=== PATIENT | male | born 1990 | race African-American/Black ===

== ENCOUNTER 2016-10-15 12:43 | Emergency (ER) | payer SELFPAY ==
[~2016-10-15] VITALS: Ht 177.8 cm; Wt 72.6 kg
[~2016-10-15 12:43] MED LIST: CYCL10TA2 PO
[2016-10-15 13:14] VITALS: BP 115/54
[2016-10-15] MEDS ORDERED: LIDOCAINE 1% / SOD BICARB 8.4% 20 ML VIAL. IJ ONE (13:30)
[2016-10-15] MEDS ORDERED: DIPHTH,PERTUSS(ACELL),TET TOX 0.5 ML DISP.SYRIN. VAX IM ONE (13:30)
--- NOTE | 2016-10-15 13:48 | RAD ---
Indication pain. AP oblique and lateral views of the right hand were obtained. There is no bony abnormality. There is a foreign body embedded in the webspace between the ring and small fingers. IMPRESSION: No bony abnormality. Foreign body in the soft tissues as outlined above
--- NOTE | 2016-10-15 13:57 | PHYS DOC ---
Past Medical History Past Medical History: No Pertinent History Past Surgical History: No Surgical History Alcohol Use: None Drug Use: None Adult General Chief Complaint Chief Complaint: LACERATION/AVULSION HPI HPI Patient is a 26 year old male presents the emergency department today with a laceration to his right hand after "accidentally hitting a glass plated picture " approximately 2 and half hours prior to arrival. Patient denies glass striking him in the face. Patient denies any additional injuries or concerns at this time. Review of Systems Review of Systems Constitutional: Denies fever or chills [] Eyes: Denies change in visual acuity, redness, or eye pain [] HENT: Denies nasal congestion or sore throat [] Respiratory: Denies cough or shortness of breath [] Cardiovascular: No additional information not addressed in HPI [] GI: Denies abdominal pain, nausea, vomiting, bloody stools or diarrhea [] : Denies dysuria or hematuria [] Musculoskeletal: Denies back pain or joint pain [] Integument: Denies rash or skin lesions [] Neurologic: Denies headache, focal weakness or sensory changes [] Endocrine: Denies polyuria or polydipsia [] Current Medications Current Medications Current Medications Medications (Trade) Dose Ordered Sig/Shea Start Time Stop Time Status Last Admin Dose Admin Diphtheria/ Tetanus/Acell Pertussis (Boostrix) 0.5 ml ONCE ONCE 10/15/16 13:30 10/15/16 13:31 DC 10/15/16 13:37 0.5 ML Lidocaine/Sodium Bicarbonate (Buffered Lidocaine 1%) 20 ml 1X ONCE 10/15/16 13:30 10/15/16 13:31 DC 10/15/16 13:36 20 ML Allergies Allergies Allergies Coded Allergies Type Severity Reaction Last Updated Verified No Known Drug Allergies 07/06/16 No Physical Exam Physical Exam Constitutional: Well developed, well nourished, no acute distress, non-toxic appearance. [] HENT: Normocephalic, atraumatic, bilateral external ears normal, oropharynx moist, no oral exudates, nose normal. [] Eyes: PERRLA, EOMI, conjunctiva normal, no discharge. [] Neck: Normal range of motion, no tenderness, supple, no stridor. [] Cardiovascular:Heart rate regular rhythm, no murmur [] Lungs & Thorax: Bilateral breath sounds clear to auscultation [] Abdomen: Bowel sounds normal, soft, no tenderness, no masses, no pulsatile masses. [] Skin: Warm, dry, no erythema, no rash. [] Back: No tenderness, no CVA tenderness. [] Extremities: Right hand has 3 lacerations overlying the third and fourth MCPJ and also to the fourth webspace. There is no laceration crosses the extensor tendons of the hand. Patient displays full flexion and extension of all 5 fingers. His fingers are neurovascularly intact with capillary refill less than 2 seconds. Neurologic: Alert and oriented X 3, normal motor function, normal sensory function, no focal deficits noted. [] Psychologic: Affect normal, judgement normal, mood normal. [] Current Patient Data Vital Signs Vital Signs Date Time Temp Pulse Resp B/P Pulse Ox O2 Delivery O2 Flow Rate FiO2 10/15/16 13:14 98.0 69 16 97 Room Air 98.0 EKG EKG [] Radiology/Procedures Radiology/Procedures 3 views of right hand were performed with adequate technique. There is a linear foreign body seen between the fourth and fifth MCP J's. Procedure note: Lacerations were anesthetized with buffered 1% lidocaine. Wound was probed by myself. I was unable to locate the foreign body seen radiographically. I asked Dr. Frederic Sewell to review the x-rays. Dr. Franco did so and present himself to the patient. Upon additional probing of the laceration, Dr. Franco was able to locate the foreign body and remove it. He produced a sliver of glass with the same dimensions is seen by the foreign body on the x-rays. Laceration #1: 2.5 cm flap laceration adjacent to the third MCP J to the dorsum of the hand that extends through the dermis. There is no extensor tendon visualized. There is no retained foreign body. The wound was anesthetized with buffered 1% lidocaine and cleansed with Betadine solution and rinsed with copious amounts of saline. Wound was explored for foreign bodies. No foreign bodies are found. Wound margins were approximated utilizing 5-0 nylon in a simple interrupted fashion of a singular closure for total of 5 stitches. Laceration #2: 2 cm laceration in the fourth web space of the right hand which extends into the dermis. There is no retained foreign body. The wound was anesthetized with buffered 1% lidocaine and cleansed with Betadine solution and rinsed with copious amounts of saline. Wound was inspected for foreign bodies. No foreign body was found. Wound margins were approximated utilizing 5-0 nylon in a simple interrupted fashion of a singular closure for total of 4 stitches. Laceration #3: 1 cm laceration to the dorsum of the proximal phalanx of the fourth finger extended into the dermis. There is no retained foreign body. The wound was anesthetized with buffered 1% lidocaine and cleansed with Betadine solution and rinsed with copious amounts of saline. Wound was inspected for foreign bodies. No foreign bodies were found. Wound margins were approximated utilizing 5-0 nylon in a simple interrupted fashion for total of 3 stitches. Course & Med Decision Making Course & Med Decision Making Pertinent Labs and Imaging studies reviewed. (See chart for details) [] Dragon Disclaimer Dragon Disclaimer This electronic medical record was generated, in whole or in part, using a voice recognition dictation system. Departure Departure Impression: Primary Impression: Laceration Disposition: HOME, SELF-CARE Condition: IMPROVED Referrals: NO PCP (PCP) Patient Instructions: Foreign Body-Brief, Laceration Care, Adult, [id number] Additional Instructions: 1. The sliver of glass was removed from your right hand. 2. Stitches need to be removed in 10 days. 3. Review the discharge instructions for self-care at home and reasons to return to the emergency department. 4. A pamphlet is provided to you for assistance in finding a primary care doctor to address your medical concerns and follow-up with wound care. Scripts Cephalexin 500 Mg Capsule1 Cap PO TID #30 CAP Prov:MELISA MORAN 10/15/16 Hydrocodone/Apap 5-325 (Ulman 5-325 Tablet)1 Each Tablet1 Tab PO PRN Q6HRS PRN PAIN #10 TAB Prov:MELISA MORAN 10/15/16 MELISA MORAN Oct 15, 2016 13:57
[2016-10-15] MEDS ORDERED: CEPH500C PO (15:22)
[2016-10-15] MEDS ORDERED: HYDR-971 PO (15:22)
== END 2016-10-15 15:31 | disposition home or self-care (01) ==
LOC: ER 12:43
DX: S61.214A Laceration without foreign body of right ring finger without damage to nail, initial encounter (principal); S61.212A Laceration without foreign body of right middle finger without damage to nail, initial encounter; W22.09XA Striking against other stationary object, initial encounter; Y93.89 Activity, other specified; Y92.89 Other specified places as the place of occurrence of the external cause; Y99.8 Other external cause status
CPT/HCPCS: 12002; 12042; 73130; 90471; 90715; 99284-25

== ENCOUNTER 2016-10-27 14:34 | Emergency (ER) | payer SELFPAY ==
[~2016-10-27] VITALS: Ht 175.3 cm; Wt 72.6 kg
[~2016-10-27 14:34] MED LIST changes: +CEPH500C PO; +HYDR-971 PO
[2016-10-27 15:15] VITALS: BP 105/56
--- NOTE | 2016-10-27 15:37 | PHYS DOC ---
Past Medical History Past Medical History: No Pertinent History Past Surgical History: No Surgical History Alcohol Use: None Drug Use: None Adult General Chief Complaint Chief Complaint: SUTURE/STAPLE REMOVAL HPI HPI Patient is a 26 year old male who presents for suture removal from the right hand. Patient states the sutures have been in for 11 days. Patient denies any problems with the wound healing. Review of Systems Review of Systems Constitutional: Denies fever or chills [] Eyes: Denies change in visual acuity, redness, or eye pain [] Musculoskeletal: Denies back pain or joint pain [] Integument: Suture removal from the right hand. Neurologic: Denies headache, focal weakness or sensory changes [] Endocrine: Denies polyuria or polydipsia [] Allergies Allergies Allergies Coded Allergies Type Severity Reaction Last Updated Verified No Known Drug Allergies 07/06/16 No Physical Exam Physical Exam Constitutional: Well developed, well nourished, no acute distress, non-toxic appearance. [] Skin: By the time I saw patient sutures had been removed from the right hand knuckles. The laceration site appears to be well approximated, there is scabbing over the laceration site. No signs of infection. Back: No tenderness, no CVA tenderness. [] Extremities: No tenderness, no cyanosis, no clubbing, ROM intact, no edema. [] Neurologic: Alert and oriented X 3, normal motor function, normal sensory function, no focal deficits noted. [] Psychologic: Affect normal, judgement normal, mood normal. [] Current Patient Data Vital Signs Vital Signs Date Time Temp Pulse Resp B/P Pulse Ox O2 Delivery O2 Flow Rate FiO2 10/27/16 15:15 97.9 81 18 96 Room Air 97.9 EKG EKG [] Radiology/Procedures Radiology/Procedures [] Course & Med Decision Making Course & Med Decision Making Pertinent Labs and Imaging studies reviewed. (See chart for details) Sutures were removed from patient's right hand. The laceration site is well approximated, no signs of infection. Neosporin recommended to the area for 7 more days. Follow-up with primary care doctor as needed. Dragon Disclaimer Dragon Disclaimer This electronic medical record was generated, in whole or in part, using a voice recognition dictation system. Departure Departure Impression: Primary Impression: Visit for suture removal Disposition: HOME, SELF-CARE Condition: STABLE Referrals: NO PCP (PCP) Follow-up with your own doctor in one week as needed Patient Instructions: Suture Removal Additional Instructions: Keep the hand clean and dry. Apply Neosporin to the area twice a day for 7 more days. LUZ AHUMADA APRN Oct 27, 2016 15:37
== END 2016-10-27 15:46 | disposition home or self-care (01) ==
LOC: ER 14:34
DX: S61.411D Laceration without foreign body of right hand, subsequent encounter (principal); X58.XXXD Exposure to other specified factors, subsequent encounter; Y92.89 Other specified places as the place of occurrence of the external cause; Y99.8 Other external cause status
CPT/HCPCS: 99281

== ENCOUNTER 2019-01-31 15:45 | Emergency (ER) | payer SELFPAY ==
[~2019-01-31] VITALS: Ht 175.3 cm; Wt 72.6 kg
[~2019-01-31 15:45] MED LIST changes: +HYDR-3164 PO; -HYDR-971 PO
[2019-01-31 16:02] VITALS: BP 128/70
[2019-01-31] MEDS ORDERED: CLIN300C8 PO ×2 (16:25→16:27)
--- NOTE | 2019-01-31 16:27 | PHYS DOC ---
Past Medical History Past Medical History: No Pertinent History Past Surgical History: No Surgical History Additional Information: non smoker Alcohol Use: None Drug Use: None Adult General Chief Complaint Chief Complaint: HAND PROBLEM HPI HPI Patient is a 62 y/o male who presents with right hand swelling erythema and pain. Patient states the symptoms started on Thursday after he was bitten by unknown insect. Symptoms worsened on Thursday and then worsen again today and so he decided to come to ER. Denies any associated symptoms. Pain is rated as 2/10 and has pressure. Attempted to clean with alcohol and peroxide at home which did not make any better. Review of Systems Review of Systems Constitutional: Denies fever or chills [] Eyes: Denies change in visual acuity, redness, or eye pain [] HENT: Denies nasal congestion or sore throat [] Respiratory: Denies cough or shortness of breath [] Cardiovascular: No additional information not addressed in HPI [] GI: Denies abdominal pain, nausea, vomiting, bloody stools or diarrhea [] : Denies dysuria or hematuria [] Musculoskeletal: Denies back pain or joint pain [] Integument: Denies rash or skin lesions. Reports redness and pain to R hand. Neurologic: Denies headache, focal weakness or sensory changes [] Endocrine: Denies polyuria or polydipsia [] Complete systems were reviewed and found to be within normal limits, except as documented in this note. Current Medications Current Medications Current Medications Medications (Trade) Dose Ordered Sig/Shea Start Time Stop Time Status Last Admin Dose Admin Clindamycin Phosphate 50 ml @ 100 mls/hr 1X ONCE 01/31/19 16:30 01/31/19 16:59 DC 01/31/19 16:34 100 MLS/HR Allergies Allergies Allergies Coded Allergies Type Severity Reaction Last Updated Verified No Known Drug Allergies 07/06/16 No Physical Exam Physical Exam Constitutional: No acute distress, non-toxic appearance. [] HENT: Normocephalic, atraumatic, bilateral external ears normal, oropharynx moist, no oral exudates, nose normal. [] Eyes: PERRLA, EOMI, conjunctiva normal, no discharge. [] Neck: Normal range of motion, no tenderness, supple, no stridor. [] Cardiovascular:Heart rate regular rhythm, no murmur [] Lungs & Thorax: Bilateral breath sounds clear to auscultation [] Abdomen: Bowel sounds normal, soft, no tenderness, no masses, no pulsatile masses. [] Skin: Warm, dry, Erythema to the R hand and warm to touch, no rash. [] Back: No tenderness, no CVA tenderness. [] Extremities: No tenderness, no cyanosis, no clubbing, ROM intact, no edema. [] Neurologic: Alert and oriented X 3, normal motor function, normal sensory function, no focal deficits noted. [] Psychologic: Affect normal, judgement normal, mood normal. [] Current Patient Data Vital Signs Vital Signs Date Time Temp Pulse Resp B/P (MAP) Pulse Ox O2 Delivery O2 Flow Rate FiO2 01/31/19 16:02 98.2 95 18 128/70 (89) 97 Room Air 98.2 EKG EKG [] Radiology/Procedures Radiology/Procedures [] Course & Med Decision Making Course & Med Decision Making Pertinent Labs and Imaging studies reviewed. (See chart for details) Discussed symptoms with patient. Will give dose of IV clindamycin in ER. Will discharge home with clindamycin PO. Patient is agreeable to plan of care. Dragon Disclaimer Dragon Disclaimer This electronic medical record was generated, in whole or in part, using a voice recognition dictation system. Departure Departure Impression: Primary Impression: Cellulitis Disposition: 01 HOME, SELF-CARE Condition: STABLE Referrals: NO PCP (PCP) Patient Instructions: Cellulitis, [id number] Additional Instructions: Please take all of your antibiotics. If symptoms worsen come back to ER. Scripts Clindamycin Hcl (CLINDAMYCIN HCL) 300 Mg Capsule 450 MG PO TID for 10 Days, #45 CAP Prov: BRIAN CHAIREZ APRN 01/31/19 Problem Qualifiers Primary Impression: Cellulitis Site of cellulitis: other site Qualified Codes: L03.818 - Cellulitis of other sites BRIAN CHAIREZ APRN January 31, 2019 16:27
[2019-01-31] MEDS ORDERED: CLINDAMYCIN 600MG PREMIX 50 ML IV ONE (16:30)
== END 2019-01-31 17:10 | disposition home or self-care (01) ==
LOC: ER 15:45
DX: L03.113 Cellulitis of right upper limb (principal)
CPT/HCPCS: 96365; 99284; J3490